=== PATIENT | male | born 1975 | race African-American/Black ===

== ENCOUNTER 2017-12-13 17:13 | Emergency (ER) | payer OTHER ==
[2017-12-13] MEDS ORDERED: HYDROmorphONE 0.5 MG/0.5 ML SYG IV (17:44)
[2017-12-13 18:33] LABS: ADD MAN DIFF? NO
[2017-12-13 18:41] LABS: WHITE BLOOD COUNT 7.6 10^3/ul (4.8-10.8)
[2017-12-13 18:41] LABS: BASOPHILS % 0.4 % (0.0-2.0); EOSINOPHILS # 0.4 10^3/ul (0.0-0.5); EOSINOPHILS % 5.5 % (0.0-7.0); HEMATOCRIT 35.7 % (42.0-52.0); HEMOGLOBIN 11.2 g/dl (14.0-18.0); LYMPHOCYTES # 3.1 10^3/ul (0.8-2.9); LYMPHOCYTES % 40.8 % (15.0-51.0); MEAN CORPUSCULAR HEMOGLOBIN 24.5 pg (29.0-33.0); MEAN CORPUSCULAR HGB CONC 31.4 g/dl (32.0-37.0); MEAN CORPUSCULAR VOLUME 78.1 fl (82.0-101.0); MEAN PLATELET VOLUME 9.3 fl (7.4-10.4); MONOCYTE # 0.8 10^3/ul (0.3-0.9); MONOCYTES % 10.8 % (0.0-11.0); NEUTROPHIL # 3.2 10^3/ul (1.6-7.5); NEUTROPHILS % 42.1 % (39.0-77.0); PLATELET COUNT 244 10^3/UL (140-415); RED BLOOD COUNT 4.57 10^6/ul (4.70-6.10); RED CELL DISTRIBUTION WIDTH 14.3 % (11.5-14.5)
[2017-12-13 18:52] LABS: INR 1.14; PARTIAL THROMBOPLASTIN TIME 30.3 Sec (25.0-35.0); PROTIME 14.8 Sec (11.9-14.9); PT RATIO 1.2
[2017-12-13 18:57] LABS: ALANINE AMINOTRANSFERASE 62 IU/L (13-69); ALBUMIN 3.7 g/dl (3.3-4.9); ALBUMIN/GLOBULIN RATIO 0.88; ALKALINE PHOSPHATASE 176 IU/L (42-121); ANION GAP 13 (8-16); ASPARTATE AMINO TRANSFERASE 68 IU/L (15-46); BLOOD UREA NITROGEN 11 mg/dl (7-20); CALCIUM 8.7 mg/dl (8.4-10.2); CARBON DIOXIDE 27 mmol/L (21-31); CHLORIDE 106 mmol/L (97-110); CREATININE 0.68 mg/dl (0.61-1.24); GLUCOSE 93 mg/dl (70-220); LIPASE 109 U/L (23-300); POTASSIUM 3.4 mmol/L (3.5-5.1); SODIUM 143 mmol/L (135-144); TOTAL PROTEIN 7.9 g/dl (6.1-8.1)
[2017-12-13] MEDS: FENTAnyl 50 MCG/ML VIAL IV (19:00)
[2017-12-13] MEDS: ONDANSETRON 4 MG INJ IV (21:16)
== END 2017-12-13 23:47 | disposition home or self-care (01) ==
LOC: E/R 17:13
DX: K46.9 Unspecified abdominal hernia without obstruction or gangrene (principal); J44.9 Chronic obstructive pulmonary disease, unspecified; I10 Essential (primary) hypertension; R10.84 Generalized abdominal pain; Z79.4 Long term (current) use of insulin; Z87.891 Personal history of nicotine dependence
CPT/HCPCS: 36415; 74176; 80053; 83690; 85025; 85610; 85730; 96374; 96375; 99285-25

== ENCOUNTER 2018-03-28 15:56 | Emergency (ER) | payer OTHER ==
[2018-03-28] MEDS: IBUPROFEN 800 MG TAB PO (16:30)
== END 2018-03-28 19:11 | disposition home or self-care (01) ==
LOC: E/R 15:56
DX: N64.4 Mastodynia (principal); I10 Essential (primary) hypertension; J45.909 Unspecified asthma, uncomplicated; J44.9 Chronic obstructive pulmonary disease, unspecified; R40.2252 Coma scale, best verbal response, oriented, at arrival to emergency department; R40.2142 Coma scale, eyes open, spontaneous, at arrival to emergency department; R40.2362 Coma scale, best motor response, obeys commands, at arrival to emergency department; Z79.4 Long term (current) use of insulin; Z91.040 Latex allergy status; Z87.891 Personal history of nicotine dependence
CPT/HCPCS: 76536; 99284-25

== ENCOUNTER 2018-04-25 22:23 | Inpatient (IN) | payer OTHER ==
[2018-04-25] MEDS ORDERED: ACETAMINOPHEN 325 MG TAB PO (23:30)
[2018-04-26] MEDS: morphine 2 MG INJ IV ×4 (01:43→14:36)
[2018-04-26] MEDS: DEXTROSE 5%-0.9% NACL 1,000 ML IV ×3 (06:14→10:29)
[2018-04-26] MEDS: PANTOPRAZOLE 40 MG INJ IV (06:14)
[2018-04-26 06:20] LABS: ADD MAN DIFF? NO
[2018-04-26 06:29] LABS: WHITE BLOOD COUNT 7.3 10^3/ul (4.8-10.8)
[2018-04-26 06:29] LABS: BASOPHILS % 0.4 % (0.0-2.0); EOSINOPHILS # 0.4 10^3/ul (0.0-0.5); EOSINOPHILS % 5.8 % (0.0-7.0); HEMATOCRIT 39.1 % (42.0-52.0); LYMPHOCYTES # 2.4 10^3/ul (0.8-2.9); LYMPHOCYTES % 32.5 % (15.0-51.0); MEAN CORPUSCULAR HEMOGLOBIN 24.5 pg (29.0-33.0); MEAN CORPUSCULAR HGB CONC 30.7 g/dl (32.0-37.0); MEAN CORPUSCULAR VOLUME 79.8 fl (82.0-101.0); MEAN PLATELET VOLUME 9.4 fl (7.4-10.4); MONOCYTE # 0.8 10^3/ul (0.3-0.9); MONOCYTES % 10.5 % (0.0-11.0); NEUTROPHIL # 3.7 10^3/ul (1.6-7.5); NEUTROPHILS % 50.5 % (39.0-77.0); PLATELET COUNT 243 10^3/UL (140-415); RED CELL DISTRIBUTION WIDTH 14.6 % (11.5-14.5)
[2018-04-26 06:44] LABS: ANION GAP 9 (8-16); BLOOD UREA NITROGEN 8 mg/dl (7-20); CALCIUM 8.5 mg/dl (8.4-10.2); CARBON DIOXIDE 30 mmol/L (21-31); CHLORIDE 106 mmol/L (97-110); CREATININE 0.65 mg/dl (0.61-1.24); GLUCOSE 94 mg/dl (70-220); POTASSIUM 3.8 mmol/L (3.5-5.1); SODIUM 141 mmol/L (135-144)
[2018-04-26] MEDS ORDERED: PROMETHAZINE (1.25 MG/ML) 5 ML CUP PO (17:00)
[2018-04-26] MEDS ORDERED: METOCLOPRAMIDE 10 MG TAB PO (17:00)
[2018-04-26] MEDS: FUROSEMIDE 20 MG TAB PO (18:00)
[2018-04-26] MEDS: BENZTROPINE 1 MG TAB PO (21:00)
[2018-04-26] MEDS: ATORVASTATIN 20 MG TAB PO (21:00)
[2018-04-26] MEDS: RISPERIDONE 2 MG TAB PO (21:00)
[2018-04-26] MEDS: FERROUS SULFATE (EC) 325 MG TAB PO (21:00)
[2018-04-26] MEDS: MIRTAZAPINE 15 MG TAB PO (21:00)
[2018-04-26] MEDS: PHENYTOIN 100 MG CAP PO (21:00)
[2018-04-26] MEDS: GABAPENTIN 300 MG CAP PO (21:00)
[2018-04-26] MEDS: LITHIUM CARBONATE 300 MG CAP PO (21:00)
[2018-04-27] MEDS: morphine 2 MG INJ IV ×5 (02:00→21:20)
[2018-04-27] MEDS: FUROSEMIDE 20 MG TAB PO ×2 (06:00→18:00)
[2018-04-27] MEDS: PANTOPRAZOLE 40 MG INJ IV (06:00)
[2018-04-27] MEDS: DIPHENHYDRAMINE 50 MG INJ IV ×3 (06:47→18:29)
[2018-04-27] MEDS: LITHIUM CARBONATE 300 MG CAP PO ×2 (08:14→20:46)
[2018-04-27] MEDS: LEVETIRACETAM 500 MG TAB PO (08:14)
[2018-04-27] MEDS: PAROXETINE 20 MG TAB PO (08:14)
[2018-04-27] MEDS: FERROUS SULFATE (EC) 325 MG TAB PO ×3 (08:14→20:46)
[2018-04-27] MEDS: GABAPENTIN 300 MG CAP PO ×3 (08:14→20:46)
[2018-04-27] MEDS: METOPROLOL (XL) 50 MG TAB PO (08:14)
[2018-04-27] MEDS ORDERED: DIATR MEGLU/DIATRIZOATE SODIUM 120 ML BTL (10:17)
[2018-04-27] MEDS: ONDANSETRON 4 MG INJ IV (12:16)
[2018-04-27] MEDS: DEXTROSE 5%-0.9% NACL 1,000 ML IV (15:30)
[2018-04-27] MEDS: PHENYTOIN 100 MG CAP PO (20:46)
[2018-04-27] MEDS: BENZTROPINE 1 MG TAB PO (20:46)
[2018-04-27] MEDS: ATORVASTATIN 20 MG TAB PO (20:46)
[2018-04-27] MEDS: MIRTAZAPINE 15 MG TAB PO (20:46)
[2018-04-27] MEDS: RISPERIDONE 2 MG TAB PO (20:47)
[2018-04-28] MEDS: DEXTROSE 5%-0.9% NACL 1,000 ML IV ×2 (00:11→20:25)
[2018-04-28] MEDS: DIPHENHYDRAMINE 50 MG INJ IV ×5 (00:38→23:04)
[2018-04-28] MEDS: morphine 2 MG INJ IV ×6 (01:35→23:30)
[2018-04-28] MEDS: PANTOPRAZOLE 40 MG INJ IV (05:36)
[2018-04-28] MEDS: FUROSEMIDE 20 MG TAB PO ×2 (06:00→17:50)
[2018-04-28] MEDS: LEVETIRACETAM 500 MG TAB PO (08:25)
[2018-04-28] MEDS: FERROUS SULFATE (EC) 325 MG TAB PO ×3 (08:25→20:16)
[2018-04-28] MEDS: PAROXETINE 20 MG TAB PO (08:26)
[2018-04-28] MEDS: METOPROLOL (XL) 50 MG TAB PO (08:26)
[2018-04-28] MEDS: GABAPENTIN 300 MG CAP PO ×3 (08:26→20:16)
[2018-04-28] MEDS: LITHIUM CARBONATE 300 MG CAP PO ×2 (08:26→20:16)
[2018-04-28 11:20] LABS: ADD MAN DIFF? NO
[2018-04-28 11:21] LABS: BASOPHILS % 0.4 % (0.0-2.0); EOSINOPHILS # 0.2 10^3/ul (0.0-0.5); EOSINOPHILS % 3.1 % (0.0-7.0); HEMATOCRIT 36.3 % (42.0-52.0); HEMOGLOBIN 11.3 g/dl (14.0-18.0); LYMPHOCYTES # 2.6 10^3/ul (0.8-2.9); LYMPHOCYTES % 33.7 % (15.0-51.0); MEAN CORPUSCULAR HEMOGLOBIN 24.7 pg (29.0-33.0); MEAN CORPUSCULAR HGB CONC 31.1 g/dl (32.0-37.0); MEAN CORPUSCULAR VOLUME 79.3 fl (82.0-101.0); MEAN PLATELET VOLUME 9.6 fl (7.4-10.4); MONOCYTE # 0.8 10^3/ul (0.3-0.9); MONOCYTES % 10.4 % (0.0-11.0); PLATELET COUNT 247 10^3/UL (140-415); RED BLOOD COUNT 4.58 10^6/ul (4.70-6.10); RED CELL DISTRIBUTION WIDTH 14.3 % (11.5-14.5)
[2018-04-28 11:21] LABS: WHITE BLOOD COUNT 7.6 10^3/ul (4.8-10.8)
[2018-04-28 11:49] LABS: ANION GAP 14 (8-16); BLOOD UREA NITROGEN 10 mg/dl (7-20); CALCIUM 8.5 mg/dl (8.4-10.2); CARBON DIOXIDE 23 mmol/L (21-31); CHLORIDE 111 mmol/L (97-110); CREATININE 0.66 mg/dl (0.61-1.24); GLUCOSE 92 mg/dl (70-220); POTASSIUM 3.8 mmol/L (3.5-5.1); SODIUM 144 mmol/L (135-144)
[2018-04-28] MEDS: PHENYTOIN 100 MG CAP PO (20:15)
[2018-04-28] MEDS: BENZTROPINE 1 MG TAB PO (20:15)
[2018-04-28] MEDS: RISPERIDONE 2 MG TAB PO (20:16)
[2018-04-28] MEDS: MIRTAZAPINE 15 MG TAB PO (20:16)
[2018-04-28] MEDS: ATORVASTATIN 20 MG TAB PO (20:16)
[2018-04-29 05:04] LABS: ADD MAN DIFF? NO
[2018-04-29] MEDS: DIPHENHYDRAMINE 50 MG INJ IV ×3 (05:06→16:56)
[2018-04-29] MEDS: PANTOPRAZOLE 40 MG INJ IV (05:07)
[2018-04-29] MEDS: FUROSEMIDE 20 MG TAB PO ×2 (05:09→17:01)
[2018-04-29 05:16] LABS: BASOPHILS % 0.3 % (0.0-2.0); EOSINOPHILS # 0.3 10^3/ul (0.0-0.5); HEMATOCRIT 35.7 % (42.0-52.0); HEMOGLOBIN 11.5 g/dl (14.0-18.0); LYMPHOCYTES # 2.1 10^3/ul (0.8-2.9); LYMPHOCYTES % 31.4 % (15.0-51.0); MEAN CORPUSCULAR HEMOGLOBIN 25.1 pg (29.0-33.0); MEAN CORPUSCULAR HGB CONC 32.2 g/dl (32.0-37.0); MEAN CORPUSCULAR VOLUME 77.9 fl (82.0-101.0); MEAN PLATELET VOLUME 9.7 fl (7.4-10.4); MONOCYTE # 0.6 10^3/ul (0.3-0.9); MONOCYTES % 9.4 % (0.0-11.0); NEUTROPHIL # 3.5 10^3/ul (1.6-7.5); NEUTROPHILS % 53.4 % (39.0-77.0); PLATELET COUNT 200 10^3/UL (140-415); RED BLOOD COUNT 4.58 10^6/ul (4.70-6.10); RED CELL DISTRIBUTION WIDTH 13.8 % (11.5-14.5)
[2018-04-29 05:16] LABS: WHITE BLOOD COUNT 6.6 10^3/ul (4.8-10.8)
[2018-04-29] MEDS: morphine 2 MG INJ IV ×4 (05:31→17:33)
[2018-04-29 05:34] LABS: ANION GAP 13 (8-16); BLOOD UREA NITROGEN 6 mg/dl (7-20); CALCIUM 8.3 mg/dl (8.4-10.2); CARBON DIOXIDE 24 mmol/L (21-31); CHLORIDE 111 mmol/L (97-110); GLUCOSE 102 mg/dl (70-220); POTASSIUM 3.6 mmol/L (3.5-5.1); SODIUM 144 mmol/L (135-144)
[2018-04-29] MEDS: GABAPENTIN 300 MG CAP PO ×2 (09:00→13:00)
[2018-04-29] MEDS: LEVETIRACETAM 500 MG TAB PO (09:00)
[2018-04-29] MEDS: METOPROLOL (XL) 50 MG TAB PO (09:00)
[2018-04-29] MEDS: PAROXETINE 20 MG TAB PO (09:00)
[2018-04-29] MEDS: LITHIUM CARBONATE 300 MG CAP PO (09:00)
[2018-04-29] MEDS: FERROUS SULFATE (EC) 325 MG TAB PO ×2 (09:00→13:00)
[2018-04-29] MEDS: ONDANSETRON 4 MG INJ IV (09:43)
== END 2018-04-29 21:00 | disposition home or self-care (01) | DRG 394 ==
LOC: PP2 22:23
DX: K43.9 Ventral hernia without obstruction or gangrene (principal); G82.20 Paraplegia, unspecified; I69.998 Other sequelae following unspecified cerebrovascular disease; I10 Essential (primary) hypertension; E78.5 Hyperlipidemia, unspecified; F32.9 Major depressive disorder, single episode, unspecified; G40.909 Epilepsy, unspecified, not intractable, without status epilepticus; F25.9 Schizoaffective disorder, unspecified; D64.9 Anemia, unspecified; G62.9 Polyneuropathy, unspecified; E66.9 Obesity, unspecified; Z68.20 Body mass index [BMI] 20.0-20.9, adult; F20.9 Schizophrenia, unspecified; Z72.0 Tobacco use
CPT/HCPCS: 74018; 74250; 80048; 85025; 87081; 97162